=== PATIENT | male | born 1955 | race Caucasian/White ===

== ENCOUNTER → 2018-08-09 | Outpatient (CLI) | payer OTHER | LOC: CAT 12:59 | DX: Z13.6 Encounter for screening for cardiovascular disorders (principal); E78.00 Pure hypercholesterolemia, unspecified; I25.10 Atherosclerotic heart disease of native coronary artery without angina pectoris ==

== ENCOUNTER → 2018-08-10 | Outpatient (CLI) | payer BC, OTHER | LOC: CAT 09:47 | DX: R51 Headache (principal) ==

== ENCOUNTER → 2018-09-29 | Outpatient (CLI) | payer BC, OTHER ==
[~2018-09-29] VITALS: Ht 193 cm; Wt 108.9 kg
[~2018-09-29] MED LIST: ASPIRIN81 M2 PO; ATENOLOL-CHLOR1 EAC2 PO; SILDENAFIL20 MG PO; TAMBOCOR 100 M100 M1 PO; XARELTO20 MG PO
[2018-09-29 07:27] VITALS: BP 126/80
--- NOTE | 2018-09-29 09:13 | TEE ---
[facility] [address] [place] [address] TRANSESOPHAGEAL ECHOCARDIOGRAM Name: KRUGERSAMEERA Atul Room #: REG [facility]#: [id number] Admission: 09/29/18 Attend Phys: Orlando Ramos, Discharge: Date of : 57 Date of Service: 09/29/1812 Report #: [id number] THIS REPORT FOR: //name// APPROVED REPORT Study performed: 09/29/2018 07:50:23 EXAM: Transesophageal Echocardiogram with Doppler/Cardioversion Status: routine BSA: 2.35 HR: 102 bpm BP: 110/72 mmHg Rhythm: Atrial Fibrillation Indications Atrial Fibrillation Cardioversion Echo Enhancing Agent Indication: Rule out Shunt Agent(s) / Amount(s) Used: Agitated Saline 6 cc Procedure After obtaining informed consent, patient underwent transesophageal echo in the [employer]. Type of Sedation : Conscious Sedation Sedation was administered by Julianna Hurley RN. Sedation was achieved intravenously with: Versed (6) Fentanyl (100) Transesophageal probe was inserted and advanced into esophagus without difficulty by Orlando Ramos MD. The YINA was performed without complications. Synchronized Cardioversion attempted: Successful Synchronized Cardioversion acheived with 150, 200 Joules after 2 attempt(s). Rhythm following Synchronized Cardioversion: Normal Sinus Rhythm Throughout the procedure, the blood pressure, pulse oximetry, cardiac rhythm, and rate were monitored. The patient tolerated the procedure without adverse effects. Recovery from conscious sedation was uneventful and vital signs were stable. Left Ventricle The left ventricle is normal size. There is normal left ventricular [facility] [address] [place] [address] TRANSESOPHAGEAL ECHOCARDIOGRAM Name: SAMEERA KRUGER Room #: [facility] [id number] Admission: 09/29/18 Attend Phys: Orlando Ramos, Discharge: Date of : 57 Date of Service: 09/29/18 0912 Report #: [id number] wall thickness. Left ventricular systolic function is normal. LVEF is 60-65%. Right Ventricle The right ventricle is normal size. The right ventricular systolic function is normal. Atria The left atrium size is normal. No thrombus is visualized in the left atrium or appendage. No shunting noted by contrast bubble injection. The right atrium size is normal. Aortic Valve The aortic valve is normal in structure. No aortic regurgitation is present. There is no aortic valvular stenosis. Mitral Valve The mitral valve is normal in structure. Trace to mild mitral regurgitation. Tricuspid Valve The tricuspid valve is normal in structure. There is no tricuspid valve regurgitation noted. Pulmonic Valve The pulmonary valve is normal in structure. There is no pulmonic valvular regurgitation. Great Vessels The aortic root is normal in size. The ascending aorta is normal in size. IVC is normal in size and collapses >50% with inspiration. Pericardium There is no pericardial effusion. Critical Notification Physician Notified Date: 09/29/2018 <Conclusion> Left ventricular systolic function is normal. LVEF is 60-65%. Both atria are normal in size. No thrombus is visualized in the left atrium or appendage. No shunting noted by contrast bubble injection. [facility] [place] [address] TRANSESOPHAGEAL ECHOCARDIOGRAM Name: SAMEERA KRUGER Room #: REG CL [facility]#: [id number] Admission: 09/29/18 Attend Phys: Orlando Ramos, Discharge: Date of : 57 Date of Service: 09/29/18911 Report #: [id number] The aortic valve is normal in structure. No aortic regurgitation or stenosis The mitral valve is normal in structure. Trace to mild mitral regurgitation. There is no pericardial effusion. Successful cardioversion of atrial fibrillation to sinus rhythm following 2 biphasic synchronous joules shocks. <ELECTRONICALLY SIGNED> By: Orlando Ramos MD, FACC 09/29/18911 1 1 Orlando Ramos MD, FACC /INF
--- NOTE | 2018-09-29 09:27 | NUR ---
PT TOLERATED PROCEDURE WELL AND IS RECOVERING WELL. FULLY ALERT AND AWAKE. SO AT BEDSIDE. VSS. MAINTAINING SAT WITH O2 OFF DRINKING WATER WITHOUT DIFFICULTY NSR CONTINUE ON MONITOR. PT GIVEN INITIAL DOSE OF FLECAINIDE 100 MG PO PRIOR TO DC
== END | disposition home or self-care (01) ==
LOC: CATH 06:49 → CV 06:49 → CATH 14:08
DX: I48.91 Unspecified atrial fibrillation (principal); I10 Essential (primary) hypertension; G47.30 Sleep apnea, unspecified; Z85.46 Personal history of malignant neoplasm of prostate; Z82.49 Family history of ischemic heart disease and other diseases of the circulatory system; Z79.01 Long term (current) use of anticoagulants; Z79.82 Long term (current) use of aspirin; Z79.899 Other long term (current) drug therapy

== ENCOUNTER → 2018-10-27 | Outpatient (CLI) | payer BC, OTHER ==
[~2018-10-27] MED LIST changes: -SILDENAFIL20 MG PO
[2018-10-27 08:54] LABS: HEMATOCRIT 45.5 % (42.0-52.0); HEMOGLOBIN 15.4 gm/dL (14.0-18.0); MCH 29.2 pg (26.0-34.0); MCHC 33.8 g/dL (28.0-37.0); MCV 86.4 fL (80.0-100.0); RBC 5.27 mil/uL (4.50-6.00); RDW 14.3 % (10.5-14.5); WBC 4.7 thou/uL (4.0-11.0)
[2018-10-27 09:07] LABS: CALCIUM 9.2 mg/dL (8.5-10.1); POTASSIUM 3.6 mmol/L (3.5-5.1); TOTAL BILIRUBIN 0.7 mg/dL (<0.1-1.0); TOTAL PROTEIN 7.3 g/dL (6.4-8.2)
== END ==
LOC: CAT 07:45
PROVIDERS: Internal Medicine Cardiovascular Disease
DX: I48.91 Unspecified atrial fibrillation (principal)

== ENCOUNTER 2018-11-03 06:34 | Observation (INO) | payer BC, OTHER ==
[~2018-11-03] VITALS: Ht 193 cm; Wt 105.7 kg
--- NOTE | ~2018-11-03 | P ---
[facility] [place] [address] PROCEDURE REPORT Name: SAMEERA KRUGER Room #: 210-P [facility] Fidelina Cueva#: [id number] Admission: 11/03/18 Attend Phys: Jac Em MD Discharge: 11/04/18 Date of : 57 Report #: [id number] THIS REPORT FOR: //name// CC: Jac Winston ATRIAL FIBRILLATION ABLATION PREOPERATIVE DIAGNOSIS: Atrial fibrillation. POSTOPERATIVE DIAGNOSIS: Atrial fibrillation. INDICATIONS: The patient is a 62-year-old with history of recurrent atrial fibrillation despite recent cardioversion. He is here for AFib ablation. PROCEDURES PERFORMED: 1. Atrial fibrillation ablation, CPT code 13074. 2. 3D mapping, CPT code 46682. 3. Intracardiac echo, CPT code 89314. 4. Focal ablation, CPT code 47216. ANESTHESIA: The patient underwent general anesthesia with no anesthesia related complications. DESCRIPTION OF PROCEDURE: The patient underwent informed consent. We discussed the details of the procedure including the risks, which include but not limited to bleeding, infection, vascular damage, cardiac perforation as well as stroke or PA. He understood these risks and is willing to proceed. The patient was brought to the EP laboratory in a fasting and sedated state and prepped and draped in a sterile fashion. At baseline, the patient was in atrial fibrillation. Next, I obtained access to the right femoral vein x 3, placing an 8, 9 and 7-Uzbek short sheath using a modified Seldinger technique. Next, under fluoroscopy, I placed a decapolar catheter easily in the coronary sinus for left atrial pacing and recording and an ice catheter in the right atrium. 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 Using intracardiac ultrasound, detailed 3D geometry was created and this was merged with the cardiac CT scan. Next, the patient was systemically heparinized and a transseptal was performed using an SL1 sheath and [place] needle. Of note, the patient had a very thick interatrial septum except at the very anterior location where I was able to obtain transseptal access. Due to this very anterior positioning, I had difficulties advancing my SL1 sheath into the left atrium. I therefore removed the SL1 sheath and advanced the cryo sheath into the right atrium and again I was not able to completely cross the septum despite the guidewire being placed in the left common ostium. Therefore, I again removed the cryo sheath and then placed the SL1 sheath back into the right atrium. Now, [address] [address] PROCEDURE REPORT Name: SAMEERA KRUGER Room #: 210-P [facility] Fidelina Cueva#: [id number] Admission: 11/03/18 Attend Phys: Jac Em MD Discharge: 11/04/18 Date of : 57 Report #: [id number] I could cross with the SL1 sheath into the left atrium. Therefore, I placed a Powerflex 6 mm x 4 cm balloon and performed a septoplasty of the interatrial septum. After performing this, I was able to cross the cryo sheath into the left atrium without any issues. Next, I started by isolating the left common ostium performed. The left common ostium had a superior branch and an inferior branch. I performed 2 freezes within the superior branch and 2 freezes within the inferior branch. I then performed an additional freeze along the ridge between the left common ostium in the left atrial appendage. This vein appeared to be isolated. I then turned my attention to the right superior pulmonary vein. I performed 2 freezes each of 100 seconds duration. The vein isolated within 36 seconds of the first freeze. I then turned my attention to the right inferior pulmonary vein and I performed a 4-minute freeze followed by a 3-minute freeze. The first freeze resulted in isolation within 37 seconds. Next, I created a detailed voltage map which showed that we had created a wide circumferential ablation of the left and right-sided veins. There was still significant atrial activity along the posterior roof region. Therefore, I performed 2 freezes along the roof anchored from the left superior pulmonary vein and then 2 freezes of the roof anchored from the right superior pulmonary vein. During my last freeze along the roof, the patient terminated from atrial fibrillation to sinus rhythm. Next, a repeat voltage map was created. This showed that in sinus rhythm, there was wide circumferential ablation of all the veins and there was partial isolation of the roof region. There was still a small area of healthy atrial tissue along the mid aspect of the roof. Post-ablation, the patient was in sinus rhythm with sinus cycle length of 790 milliseconds, IL interval 200 milliseconds, QRS duration 80 milliseconds, QT interval 400 milliseconds. As such, the procedure was concluded. Using intracardiac ultrasound, I verified there was no pericardial effusion. The patient then received systemic protamine and once ACT was within acceptable range, all catheters and sheaths were pulled and hemostasis obtained. The patient awoke neurologically and hemodynamically intact. No complications and no significant bleeding. CONCLUSIONS: 1. Successful AFib ablation with wide circumferential ablation of the pulmonary veins. 2. Creation of a posterior roofline. By: 1710 [id number] Jac Em MD /nt
[2018-11-03 07:01] VITALS: BP 137/90
[2018-11-03 07:11] LABS: ABSOLUTE NEUTROPHILS 4.6 thou/uL (1.4-8.2); BASOPHILS 0.5 % (0.0-2.0); EOSINOPHILS 1.8 % (0.0-3.0); HEMATOCRIT 46.8 % (42.0-52.0); LYMPHOCYTES 22.8 % (24.0-44.0); MCH 29.5 pg (26.0-34.0); MCHC 34.3 g/dL (28.0-37.0); MONOCYTES 10.4 % (1.0-8.0); PLATELET COUNT 216 thou/uL (150-400); POLYS 64.5 % (36.0-66.0); RBC 5.44 mil/uL (4.50-6.00); RDW 14.7 % (10.5-14.5); WBC 7.1 thou/uL (4.0-11.0)
[2018-11-03] MEDS ORDERED: SILDENAFIL20 MG PO (07:14)
[2018-11-03 07:18] LABS: CALCIUM 9.2 mg/dL (8.5-10.1); CREATININE 1.2 mg/dL (0.7-1.3)
[2018-11-03 07:22] LABS: POTASSIUM 2.9 mmol/L (3.5-5.1)
[2018-11-03 07:23] LABS: APTT 26.5 Seconds (24.5-32.8); PROTIME 10.7 Seconds (9.3-11.4)
[2018-11-03 07:24] LABS: ALBUMIN 3.9 g/dL (3.4-5.0); TOTAL BILIRUBIN 0.7 mg/dL (<0.1-1.0); TOTAL PROTEIN 7.1 g/dL (6.4-8.2)
--- NOTE | 2018-11-03 08:54 | EKG ---
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 VILLAGOMEZ : 1955 Requested By: Jac Em Order Number: [id number] MD: Orlando Ramos Measurements Intervals [place] Rate: 77 P: WA: QRS: 2 QRSD: 97 T: 44 QT: 387 QTc: 438 Interpretive Statements Atrial fibrillation Abnormal R-wave progression, early transition Compared to ECG 05/11/2000 21:41:34 Sinus rhythm no longer present Electronically Signed On 11-03-2018 8:54:08 CDT by Orlando Ramos [email or web address] <ELECTRONICALLY SIGNED> By: Orlando Ramos MD, [facility] 11/03/1854 9 9 Orlando Ramos MD, [facility] /EPI
[2018-11-03 14:30] VITALS: BP 131/74
[2018-11-03 19:11] VITALS: BP 117/72
[2018-11-03 20:28] VITALS: BP 148/86
[2018-11-03 20:35] VITALS: BP 147/88
[2018-11-03 21:14] VITALS: BP 141/85
[2018-11-04 00:03] VITALS: BP 142/88
[2018-11-04 05:35] VITALS: BP 141/86
[2018-11-04 09:10] VITALS: BP 150/85
[2018-11-04 11:14] VITALS: BP 150/85
== END 2018-11-04 13:00 | disposition home or self-care (01) ==
LOC: OR 06:34 → 2N 06:49 → ENTRNSPT 11-04 11:54 → EDTRNSPTSTS 11-04 12:17 → 2N 11-04 13:00
PROVIDERS: ADMIT Internal Medicine Cardiovascular Disease
DX: I48.0 Paroxysmal atrial fibrillation (principal); I10 Essential (primary) hypertension; R53.83 Other fatigue; Z79.82 Long term (current) use of aspirin; Z79.899 Other long term (current) drug therapy
CPT/HCPCS: 62110; 62900; 65020; 65040; 65131; 70005

== ENCOUNTER → 2019-08-29 | Outpatient (CLI) | payer OTHER ==
[~2019-08-29] MED LIST changes: +SILDENAFIL20 MG PO
[2019-08-29 10:31] LABS: CREATININE 0.9 mg/dL (0.7-1.3)
== END ==
LOC: CAT 08:50
PROVIDERS: ATTEND Internal Medicine
DX: J84.10 Pulmonary fibrosis, unspecified (principal); M47.814 Spondylosis without myelopathy or radiculopathy, thoracic region; I25.10 Atherosclerotic heart disease of native coronary artery without angina pectoris